=== PATIENT | female | born 1980 | race Two or more races ===

== ENCOUNTER → 2023-03-30 | Emergency (ER) | payer OTHER ==
[~2023-03-30] VITALS: Ht 162.6 cm; Wt 63.5 kg
[~2023-03-30] MED LIST: PREVACID30 MG PO; PROTONIX20 MG PO
[2023-03-30 14:24] LABS: HEMATOCRIT 33.1 % (36.0-45.00); HEMOGLOBIN 11.1 g/dL (12.0-15.00); MEAN CELL VOLUME 89.6 fL (80.00-100.00); MEAN CORPUSCULAR HGB CONC 33.4 g/dl (32.0-36.0); PLATELET COUNT 306 K/uL (150-450); RED CELL DISTRIBUTION WIDTH 12.7 % (11.5-14.5)
[2023-03-30 15:54] LABS: URINE APPEARANCE Clear; URINE BILIRRUBIN Negative (NEGATIVE); URINE BLOOD NHT; URINE COLOR Yellow; URINE GLUCOSE Negative (NEGATIVE); URINE LEUKOCYTE Negative; URINE NITRATE Negative; URINE PROTEIN Negative (NEGATIVE); URINE UROBILINOGEN 0.2 E.U./dl
[2023-03-30 15:58] LABS: URINE BACTERIA 95.7 uL (0.0-1933); URINE EPITHELIAL CELLS 9.8 uL (0.0-38.8); URINE RBC 7.9 uL (0.0-20.8); URINE WBC 5.4 uL (0.0-23.2)
== END | disposition home or self-care (01) ==
LOC: ER 12:43
PROVIDERS: General Practice
DX: Z34.90 Encounter for supervision of normal pregnancy, unspecified, unspecified trimester (principal); Z3A.09 9 weeks gestation of pregnancy; R10.2 Pelvic and perineal pain; Z88.6 Allergy status to analgesic agent

== ENCOUNTER 2023-04-16 09:52 | Outpatient (CLI) | payer OTHER | END 2023-04-16 09:58 | disposition home or self-care (01) | LOC: PRENATAL 09:52 | PROVIDERS: ATTEND Obstetrics & Gynecology Maternal & Fetal Medicine | DX: O36.80X0 Pregnancy with inconclusive fetal viability, not applicable or unspecified (principal); Z36.82 Encounter for antenatal screening for nuchal translucency; Z36.9 Encounter for antenatal screening, unspecified; O09.529 Supervision of elderly multigravida, unspecified trimester; Z3A.11 11 weeks gestation of pregnancy ==

== ENCOUNTER 2023-05-01 10:43 | Outpatient (CLI) | payer OTHER | END 2023-05-01 10:52 | disposition home or self-care (01) | LOC: SONOGRAMA 10:43 | PROVIDERS: ATTEND Student in an Organized Health Care Education/Training Program | DX: N64.4 Mastodynia (principal) ==

== ENCOUNTER 2023-06-11 13:17 | Outpatient (CLI) | payer OTHER | END 2023-06-11 13:20 | disposition home or self-care (01) | LOC: PRENATAL 13:17 | PROVIDERS: ATTEND Obstetrics & Gynecology Maternal & Fetal Medicine | DX: O35.9XX0 Maternal care for (suspected) fetal abnormality and damage, unspecified, not applicable or unspecified (principal); O35.3XX0 Maternal care for (suspected) damage to fetus from viral disease in mother, not applicable or unspecified; O44.00 Complete placenta previa NOS or without hemorrhage, unspecified trimester; O09.529 Supervision of elderly multigravida, unspecified trimester; Z3A.19 19 weeks gestation of pregnancy ==